=== PATIENT | male | born 1945 | race Caucasian/White ===

== ENCOUNTER 2016-06-29 09:53 | Emergency (ER) | payer MEDICARE, OTHER ==
--- NOTE | 2016-06-29 10:12 | ER Document Report ---
ED Medical Screen (RME) - General Stated Complaint: RIB PAIN Notes: patient is a 71 year old male complaining of right side rib pain that is constant that started sunday with sudden onset. patient has a history of CAd with LA and CABG but also admits to known gall stones. I have greeted and performed a rapid initial assessment of this patient. A comprehensive ED assessment and evaluation of the patient, analysis of test results and completion of the medical decision making process will be conducted by additional ED providers. TRAVEL OUTSIDE OF THE [place] IN LAST 30 DAYS: No - Related Data Allergies/Adverse Reactions: No Known Allergies Allergy (Verified 06/29/16 10:07) Past Medical History - Past Medical History Cardiac Medical History: Reports: Hx Coronary Artery Disease, Hx Heart Attack, Hx Hypercholesterolemia, Hx Hypertension, Hx Peripheral Vascular Disease Pulmonary Medical History: Reports: Hx COPD Denies: Hx Tuberculosis Psychiatric Medical History: Reports: Hx Depression Past Surgical History: Reports: Hx Cardiac Surgery - triple bypass, AAA, stents placed, Hx Coronary Artery Bypass Graft, Hx Open Heart Surgery, Hx Tonsillectomy. Denies: Hx Appendectomy, Hx Bowel Surgery, Hx Cholecystectomy, Hx Gastric Bypass Surgery, Hx Herniorrhaphy, Hx Pacemaker - Immunizations Hx Diphtheria, Pertussis, Tetanus Vaccination: - unknown
--- NOTE | 2016-06-29 10:33 | ER Document Report ---
ED General - General Chief Complaint: Rib Pain Stated Complaint: RIB PAIN Time seen by provider: 10:29 Mode of Arrival: Ambulatory Information source: Patient Notes: 71-year-old male reports he woke up 3 mornings ago with a sudden sharp pain in the right lower rib cage laterally. He reports after few seconds that went away and within an hour he developed more of a vague discomfort in the right lower chest laterally and right upper abdomen. He reports he's had occasional nausea with this but no vomiting. He reports he's never had any prior discomfort like this. He reports the discomfort is always there and not waxing or waning and does not radiate elsewhere. He denies fever, chills, cough, shortness of breath, left-sided chest or abdominal pain, hematemesis, hematochezia, melena, dysuria, hematuria, or syncope. He reports prior history of cardiac bypass surgery and cardiac stents and AAA repair. He reports eating does not make his symptoms better or worse. He reports movement does not make his symptoms better or worse. reports that their son had symptoms similar to this last year that turned out to be gallstones. Patient reports she had an MRI of his back within the past few years that showed "stones" but he does not know if they were kidney stones or gallstones. Physical Exam: General: Alert, appears well. HEENT: Normocephalic. Atraumatic. PERRLA. Extraocular movements intact. Oropharynx clear. Neck: Supple. Non-tender. Respiratory: No respiratory distress. Clear and equal breath sounds bilaterally. Minimal discomfort to palpation at the right costal margin laterally no lesions noted Cardiovascular: Regular rate and rhythm. Abdominal: Normal Inspection. Soft, trace discomfort in the right upper quadrant no guarding rebound rigidity no referred pain no pulsatile masses. No distension. Normal Bowel Sounds. Back: Non-tender. No deformity or step off. No CVA tenderness Extremities: Moves all four extremities. Upper extremities: Normal inspection. Non-tender. Normal color. Normal ROM. Normal temperature. Lower extremities: Normal inspection. Non-tender. No edema. Normal color. Normal ROM. Normal temperature. Neurological: Speech clear mentation normal. Psychological: Normal affect. Normal Mood. Skin: Warm. Dry. Normal color. TRAVEL OUTSIDE OF THE [place] IN LAST 30 DAYS: No - Related Data Allergies/Adverse Reactions: No Known Allergies Allergy (Verified 06/29/16 10:07) Past Medical History - Social History Smoking Status: Current Every Day Smoker Chew tobacco use (# tins/day): Yes Frequency of alcohol use: Occasional Drug Abuse: None Family History: CAD Patient has suicidal ideation: No Patient has homicidal ideation: No - Past Medical History Cardiac Medical History: Reports: Hx Coronary Artery Disease, Hx Heart Attack, Hx Hypercholesterolemia, Hx Hypertension, Hx Peripheral Vascular Disease Pulmonary Medical History: Reports: Hx COPD Denies: Hx Tuberculosis Renal/ Medical History: Denies: Hx Peritoneal Dialysis Psychiatric Medical History: Reports: Hx Depression Past Surgical History: Reports: Hx Cardiac Surgery - triple bypass, AAA, stents placed, Hx Coronary Artery Bypass Graft, Hx Open Heart Surgery, Hx Tonsillectomy. Denies: Hx Appendectomy, Hx Bowel Surgery, Hx Cholecystectomy, Hx Gastric Bypass Surgery, Hx Herniorrhaphy, Hx Pacemaker - Immunizations Hx Diphtheria, Pertussis, Tetanus Vaccination: - unknown Hx Pneumococcal Vaccination: 12/31/11 Review of Systems - Review of Systems Constitutional: denies: Chills, Fever EENT: denies: Ear pain, Nose pain, Throat pain Cardiovascular: See HPI Respiratory: denies: Cough, Short of breath Gastrointestinal: See HPI Genitourinary: denies: Burning, Dysuria, Hematuria Musculoskeletal: See HPI Hematologic/Lymphatic: denies: Swollen glands Neurological/Psychological: denies: Weakness, Numbness Physical Exam - Vital signs Vitals: Resp 16 06/29/16 10:35 Course - Re-evaluation Re-evalutation: 06/29/16 14:25 Patient reports his right upper quadrant and right lower chest pain is somewhat better now. His no evidence in blood work or exam to suggest acute cholecystitis or gallstone pancreatitis. He is comfortable with discharge and outpatient follow-up with general surgery. We'll provide her with prescriptions for pain and nausea as needed - Vital Signs Vital signs: Temp Pulse Resp BP Pulse Ox 69 13 139/74 H 96 06/29/16 11:24 06/29/16 12:30 06/29/16 12:31 06/29/16 12:30 - Laboratory Result Diagrams: 06/29/16 10:40 06/29/16 10:40 Laboratory results interpreted by me: 06/29/16 06/29/16 06/29/16 10:40 10:40 10:40 WBC 11.0 H Absolute Neutrophils 8.4 H D-Dimer 1.18 H Lipase 305.3 H - Diagnostic Test Radiology reviewed: Image reviewed, Reports reviewed - EKG Interpretation by Me Additional EKG results interpreted by me: 06/29/16 14:25 EKG reviewed by myself shows sinus rhythm at 67 occasional premature atrial beat no acute changes no significant change from 10/10/2014 Discharge - Discharge Clinical Impression: Cholelithiasis Qualifiers: Cholelithiasis location: gallbladder Cholecystitis presence: without cholecystitis Biliary obstruction: without biliary obstruction Qualified Code(s) : K80.20 - Calculus of gallbladder without cholecystitis without obstruction Condition: Stable Disposition: HOME, SELF-CARE Instructions: Surgeon Additional Instructions: Gallbladder Disease Your evaluation shows evidence of gallbladder disease. The gallbladder is a pouch under the liver which stores bile. Stones, infection, or irritation of the gallbladder cause attacks of pain. Certain foods -- fats in particular -- may provoke attacks. The usual treatment for gallbladder disease is surgical removal of the gallbladder -- called a cholecystectomy. You will be referred to a physician qualified to advise you on the best treatment for your problem. Hospitalization is not necessary. Take clear liquids only until you are painfree. After that, you should stay on a low-fat diet, with frequent SMALL meals. Call the doctor or return at once if you develop severe pain, repeated vomiting, fever, or jaundice (a yellow color in the skin and whites of the eyes) . Prescriptions: Oxycodone HCl/Acetaminophen [Percocet 5-325 mg Tablet] 1 tab PO Q6H PRN #20 tablet PRN Reason: For Pain Promethazine HCl [Phenergan 25 mg Tablet] 1 tab PO Q6H PRN #20 tablet PRN Reason: Referrals: REGI COEL PA-C [Primary Care Provider] - Follow up as needed DEBORAH RICHMOND MD [ACTIVE STAFF] - Follow up in 1 week
[2016-06-29 10:51] LABS: ABSOLUTE BASOPHILS # (AUTO) 0.1 10^3/uL (0.0-0.2); ABSOLUTE EOSINOPHILS # (AUTO) 0.2 10^3/uL (0.0-0.6); ABSOLUTE LYMPHOCYTES (AUTO) 1.7 10^3/uL (0.5-4.7); ABSOLUTE MONOCYTES (AUTO) 0.7 10^3/uL (0.1-1.4); ABSOLUTE NEUT (AUTO) 8.4 10^3/uL (1.7-8.2); BASOPHILS % (AUTO) 0.6 % (0-2); EOSINOPHILS % (AUTO) 1.7 % (0-6); HEMATOCRIT 49.4 % (37.9-51.0); HEMOGLOBIN 16.9 g/dL (13.5-17.0); HGB HCT DIFFERENCE 1.3; LYMPHOCYTES % (AUTO) 15.7 % (13-45); MEAN CORPUSCULAR HEMOGLOBIN 30.9 pg (27.0-33.4); MEAN CORPUSCULAR HGB CONC 34.3 g/dL (32.0-36.0); MEAN CORPUSCULAR VOLUME 90 fl (80-97); MONOCYTES % (AUTO) 6.1 % (3-13); RED BLOOD COUNT 5.47 10^6/uL (4.35-5.55); RED CELL DISTRIBUTION WIDTH 13.1 % (11.5-14.0); SEGMENTED NEUTROPHILS % (AUTO) 75.9 % (42-78)
[2016-06-29 11:14] LABS: ALANINE AMINOTRANSFERASE 38 U/L (21-72); ALBUMIN 4.7 g/dL (3.5-5.0); ALKALINE PHOSPHATASE 99 U/L (38-126); ANION GAP 14 (5-19); ASPARTATE AMINO TRANSFERASE 27 U/L (17-59); BLOOD UREA NITROGEN 12 mg/dL (7-20); CALCIUM 9.8 mg/dL (8.4-10.2); CARBON DIOXIDE 24 mmol/L (22-30); CHLORIDE 106 mmol/L (98-107); CREATINE KINASE 57 U/L (55-170); CREATININE RESULT 1.05 mg/dL (0.52-1.25); GLUCOSE 107 mg/dL (75-110); LIPASE 305.3 U/L (23-300); SODIUM 143.8 mmol/L (137-145); TOTAL PROTEIN 8.2 g/dL (6.3-8.2)
[2016-06-29 11:22] LABS: CREATINE KINASE MB 0.41 ng/mL (<4.55)
[2016-06-29 11:23] LABS: TROPONIN I < 0.012 ng/mL
--- NOTE | 2016-06-29 13:18 | EKG REPORT ---
SEVERITY:- BORDERLINE ECG - SINUS RHYTHM ATRIAL PREMATURE COMPLEX BORDERLINE INFERIOR Q WAVES : Confirmed by: Brock Martinez MD 29-Jun-2016 13:18:30
[2016-06-29 14:45] VITALS: BP 167/93
== END 2016-06-29 14:43 | disposition home or self-care (01) ==
LOC: ER 09:53
DX: K80.20 Calculus of gallbladder without cholecystitis without obstruction (principal); R07.81 Pleurodynia; F17.210 Nicotine dependence, cigarettes, uncomplicated; I25.10 Atherosclerotic heart disease of native coronary artery without angina pectoris; E78.00 Pure hypercholesterolemia, unspecified; I10 Essential (primary) hypertension; J44.9 Chronic obstructive pulmonary disease, unspecified; I25.2 Old myocardial infarction; Z95.1 Presence of aortocoronary bypass graft
CPT/HCPCS: 36415; 71010; 71275; 76700; 80053; 82550; 82553; 83690; 84484; 85025; 85379; 93005; 93010; 99284

== ENCOUNTER 2016-08-10 08:49 | Emergency (ER) | payer MEDICARE, OTHER ==
--- NOTE | 2016-08-10 10:39 | ER Document Report ---
ED Cardiac - General Mode of Arrival: Ambulatory Information source: Patient TRAVEL OUTSIDE OF THE [place] IN LAST 30 DAYS: No - HPI Patient complains to provider of: Chest pain Was the onset of pain: Sudden When did pain begin: 0600 today Quality of pain: Pressure Chest pain radiation location: Right jaw, Right arm Severity now: Mild Severity at worst: Moderate Chest pain precipitating factors: At Rest - asleep Cardiac risk factors: Hypertension, Smoker, Hx HI Associated symptoms: Jaw pain, Nausea/vomiting - No vomiting, Other - Right arm pain. denies: Diaphoresis <DAWN MARTINEZ - Last Filed: 08/10/16 11:12> <ELICEO NI - Last Filed: 08/10/16 16:20> <CARLY CONTRERAS - Last Filed: 08/10/16 19:40> - General Chief Complaint: Chest Pain Stated Complaint: CHEST PAIN Notes: Patient is a 71-year-old male presenting to the emergency department concerned of chest pain that awoke him from sleep at approximately 0600 this morning. Patient describes the pain as a pressure which is now improved to a mild pressure. Patient also reports a dull ache down his left arm and some jaw pain. Patient reports some fleeting chest pain approximately one week ago that lasted approximately 10 minutes. Patient also admits to some mild nausea, but denies any diaphoresis. Patient has an extensive history of cardiac problems including a triple bypass, stents, and endarterectomy. 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 (DAWN MARTINEZ) - Related Data Allergies/Adverse Reactions: No Known Allergies Allergy (Verified 08/10/16 08:53) Past Medical History - General Information source: Patient, [facility] Records - Social History Smoking Status: Current Every Day Smoker Chew tobacco use (# tins/day): No Frequency of alcohol use: None Drug Abuse: Marijuana Lives with: Family Family History: CAD Patient has suicidal ideation: No Patient has homicidal ideation: No - Past Medical History Cardiac Medical History: Reports: Hx Coronary Artery Disease, Hx Heart Attack, Hx Hypercholesterolemia, Hx Hypertension, Hx Peripheral Vascular Disease Pulmonary Medical History: Reports: Hx COPD Denies: Hx Tuberculosis Renal/ Medical History: Denies: Hx Peritoneal Dialysis Psychiatric Medical History: Reports: Hx Depression Past Surgical History: Reports: Hx Cardiac Catheterization, Hx Cardiac Surgery - triple bypass, AAA, stents placed, Hx Coronary Artery Bypass Graft, Hx Coronary Stent - 2000, Hx Open Heart Surgery, Hx Tonsillectomy, Hx Vascular Surgery - AAA stent in 2010. Denies: Hx Appendectomy, Hx Bowel Surgery, Hx Cholecystectomy, Hx Gastric Bypass Surgery, Hx Herniorrhaphy, Hx Pacemaker - Immunizations Hx Diphtheria, Pertussis, Tetanus Vaccination: - unknown Hx Pneumococcal Vaccination: 12/31/11 <DAWN MARTINEZ - Last Filed: 08/10/16 11:12> Review of Systems - Review of Systems Constitutional: No symptoms reported. denies: Diaphoresis EENT: No symptoms reported Cardiovascular: See HPI, Chest pain - Radiates down left arm Respiratory: No symptoms reported Gastrointestinal: See HPI, Nausea. denies: Vomiting Genitourinary: No symptoms reported Male Genitourinary: No symptoms reported Musculoskeletal: No symptoms reported Skin: No symptoms reported Hematologic/Lymphatic: No symptoms reported Neurological/Psychological: No symptoms reported -: Yes All other systems reviewed and negative <DAWN MARTINEZ - Last Filed: 08/10/16 11:12> Physical Exam - General General appearance: Alert In distress: None - HEENT Head: Normocephalic, Atraumatic Eyes: Normal Pupils: PERRL Neck: No: Carotid bruit - Respiratory Respiratory status: No respiratory distress Chest status: Nontender Breath sounds: Normal Chest palpation: Normal - Cardiovascular Rhythm: Regular Heart sounds: Normal auscultation Murmur: No - Abdominal Inspection: Normal Tenderness: Nontender - Back Back: Normal, Nontender - Extremities General upper extremity: Normal inspection, Nontender General lower extremity: Normal inspection, Nontender - Neurological Neuro grossly intact: Yes Cognition: Normal Radha Coma Scale Eye Opening: Spontaneous [place] Coma Scale Verbal: Oriented Radha Coma Scale Motor: Obeys Commands Radha Coma Scale Total: 15 Speech: Normal - Psychological Associated symptoms: Normal affect, Normal mood - Skin Skin Temperature: Warm Skin Moisture: Dry Skin Color: Normal <DAWN MARTINEZ - Last Filed: 08/10/16 11:12> <ELICEO NI - Last Filed: 08/10/16 16:20> <CARLY CONTRERAS - Last Filed: 08/10/16 19:40> - Vital signs Vitals: Temp Pulse Resp BP Pulse Ox 97.8 F 64 16 154/87 H 98 08/10/16 09:02 08/10/16 09:02 08/10/16 09:02 08/10/16 09:02 08/10/16 09:02 Course - Laboratory Result Diagrams: 08/10/16 10:35 08/10/16 10:35 <MARÍA MARTINEZSSICA - Last Filed: 08/10/16 11:12> - Laboratory Result Diagrams: 08/10/16 10:35 08/10/16 10:35 - Diagnostic Test Radiology reviewed: Image reviewed, Reports reviewed - Normal chest x-ray - EKG Interpretation by Pr EKG shows normal: Sinus rhythm, [place], Intervals. abnormal: QRS Complexes - Probable old inferior HI, ST-T Waves - Nonspecific anterior T abnormalities Rate: Normal - 60 Rhythm: NSR When compared to previous EKG there are: Changes noted - The anterior T-wave depression and inversion is new compared to 10/10/2014 and 06/29/2016. - Consults Dr. Vega Time consulted: 16:05 Consulted provider: other - Will accept at [facility] on [facility] cardiology service - Transfer of Care Care transferred to following provider: Dr. Contreras <ELICEO NI - Last Filed: 08/10/16 16:20> - Laboratory Result Diagrams: 08/10/16 10:35 08/10/16 10:35 <CARLY CONTRERAS - Last Filed: 08/10/16 19:40> - Re-evaluation Re-evalutation: 08/10/16 11:47 EKG does suggest some ischemic changes in the anterior leads compared to previous EKGs. He was given one sublingual nitroglycerin at 11:23 AM. At this time he cannot note any significant change in his very mild pressure discomfort. His blood pressure did drop to 114 systolic and he is receiving IV fluids. 08/10/16 16:20 The patient much later did admit that his chest pain last week lasted considerably longer than 10 minutes, possibly up to an hour after he took aspirin for it. He also reports that his doctor had him stop Plavix about 4 years ago. He is receiving heparin, Plavix, and nitroglycerin paste while awaiting transport. (ELICEO NI) 08/10/16 19:40 Patient was evaluated prior to transport. EMS is present. Patient denies any chest discomfort currently. Heart and lungs show no acute abnormality. ( CARLY CONTRERAS) - Vital Signs Vital signs: Temp Pulse Resp BP Pulse Ox 97.8 F 64 12 126/82 H 98 08/10/16 09:02 08/10/16 09:02 08/10/16 17:03 08/10/16 17:03 08/10/16 17:03 - Laboratory Laboratory results interpreted by me: 08/10/16 08/10/16 10:35 14:35 Sodium 145.2 H Potassium 5.2 H Calcium 10.4 H Creatine Kinase 238 H - Transfer of Care Notes: 08/10/16 16:21 Patient is pending transport to [facility]. (ELICEO NI) Critical Care Note - Critical Care Note Total time excluding time spent on procedures (mins): 45 <ELICEO NI - Last Filed: 08/10/16 16:20> Discharge <DAWN MARTINEZ - Last Filed: 08/10/16 11:12> <ELICEO NI - Last Filed: 08/10/16 16:20> <CARLY CONTRERAS - Last Filed: 08/10/16 19:40> - Discharge Clinical Impression: NSTEMI (non-ST elevation myocardial infarction) Chest pain Qualifiers: Chest pain type: chest pain due to myocardial ischemia Ischemic chest pain type : unstable angina pectoris Qualified Code(s): I20.0 - Unstable angina Condition: Stable Disposition: [facility] Referrals: REGI REED PA-C [Primary Care Provider] - Follow up as needed Scribe Documentation - Scribe Written by Scribe:: Dawn Martinez 08/10/2016 1039 acting as scribe for :: Oliver <DAWN MARTINEZ - Last Filed: 08/10/16 11:12>
[2016-08-10 10:49] LABS: ABSOLUTE BASOPHILS # (AUTO) 0.1 10^3/uL (0.0-0.2); ABSOLUTE EOSINOPHILS # (AUTO) 0.1 10^3/uL (0.0-0.6); ABSOLUTE LYMPHOCYTES (AUTO) 2.2 10^3/uL (0.5-4.7); ABSOLUTE MONOCYTES (AUTO) 0.6 10^3/uL (0.1-1.4); ABSOLUTE NEUT (AUTO) 5.7 10^3/uL (1.7-8.2); BASOPHILS % (AUTO) 0.8 % (0-2); EOSINOPHILS % (AUTO) 1.6 % (0-6); HEMATOCRIT 49.2 % (37.9-51.0); HGB HCT DIFFERENCE 1.8; LYMPHOCYTES % (AUTO) 25.2 % (13-45); MEAN CORPUSCULAR HEMOGLOBIN 31.3 pg (27.0-33.4); MEAN CORPUSCULAR HGB CONC 34.6 g/dL (32.0-36.0); MEAN CORPUSCULAR VOLUME 91 fl (80-97); MONOCYTES % (AUTO) 7.2 % (3-13); RED BLOOD COUNT 5.43 10^6/uL (4.35-5.55); RED CELL DISTRIBUTION WIDTH 12.9 % (11.5-14.0); SEGMENTED NEUTROPHILS % (AUTO) 65.2 % (42-78); WHITE BLOOD COUNT 8.7 10^3/uL (4.0-10.5)
[2016-08-10 11:10] LABS: ALANINE AMINOTRANSFERASE 40 U/L (21-72); ALBUMIN 4.4 g/dL (3.5-5.0); ALKALINE PHOSPHATASE 85 U/L (38-126); ANION GAP 12 (5-19); ASPARTATE AMINO TRANSFERASE 29 U/L (17-59); BILIRUBIN,DIRECT 0.2 mg/dL (0.0-0.4); BILIRUBIN,TOTAL 0.7 mg/dL (0.2-1.3); BLOOD UREA NITROGEN 15 mg/dL (7-20); CALCIUM 10.4 mg/dL (8.4-10.2); CARBON DIOXIDE 28 mmol/L (22-30); CHLORIDE 105 mmol/L (98-107); CREATINE KINASE 95 U/L (55-170); CREATININE RESULT 1.07 mg/dL (0.52-1.25); GLUCOSE 105 mg/dL (75-110); LIPASE 202.8 U/L (23-300); POTASSIUM 5.2 mmol/L (3.6-5.0); SODIUM 145.2 mmol/L (137-145); TOTAL PROTEIN 7.7 g/dL (6.3-8.2)
[2016-08-10 11:23] LABS: CREATINE KINASE MB 1.24 ng/mL (<4.55)
[2016-08-10] MEDS ORDERED: NORMAL SALINE 1000 ML 1,000 ML IV ONE ×3 (11:24→14:26)
[2016-08-10 11:26] LABS: TROPONIN I 0.071 ng/mL
[2016-08-10] MEDS ORDERED: HEPARIN SOD (PORCINE) 1,000 UNIT/ML 10 ML VIAL IV ONE (12:14)
[2016-08-10] MEDS ORDERED: HEPARIN SODIUM,PORCINE/D5W 250 ML IV PRN (12:14)
[2016-08-10] MEDS ORDERED: HEPARIN SOD (PORCINE) 1,000 UNIT/ML 10 ML VIAL IV PRN (12:14)
[2016-08-10 12:45] LABS: PROTHROMBIN TIME 11.9 SEC (11.4-15.4)
[2016-08-10 12:46] LABS: PARTIAL THROMBOPLASTIN TIME 29.8 SEC (23.5-35.8)
--- NOTE | 2016-08-10 13:12 | EKG REPORT ---
SEVERITY:- ABNORMAL ECG - SINUS RHYTHM NONSPECIFIC T ABNORMALITIES, ANT-LAT LEADS : Confirmed by: Brock Martinez MD 10-Aug-2016 13:11:44
[2016-08-10 13:35] LABS: APPEARANCE,URINE CLEAR; BILIRUBIN,URINE NEGATIVE (NEGATIVE); GLUCOSE, URINE NEGATIVE (NEGATIVE); KETONES,URINE NEGATIVE (NEGATIVE); LEUKOCYTE ESTERASE,URINE NEGATIVE (NEGATIVE); NITRITE,URINE NEGATIVE (NEGATIVE); PROTEIN,URINE NEGATIVE (NEGATIVE); URINE SPECIFIC GRAVITY 1.008; UROBILINOGEN,URINE NEGATIVE mg/dL (<2.0)
[2016-08-10] MEDS ORDERED: NITROGLYCERIN 2% OINTMENT 1 GM PACKET TP ONE (15:24)
[2016-08-10] MEDS ORDERED: NITROGLYCERIN 2% OINTMENT 1 GM PACKET ONE (15:25)
[2016-08-10] MEDS ORDERED: CLOPIDOGREL BISULFATE 300 MG TABLET PO ONE (15:43)
[2016-08-10 17:31] VITALS: BP 126/82
== END 2016-08-10 18:03 | disposition short-term general hospital (02) ==
LOC: ER 08:49
DX: I21.4 Non-ST elevation (NSTEMI) myocardial infarction (principal); R07.89 Other chest pain; R68.84 Jaw pain; M79.601 Pain in right arm; R11.0 Nausea; I25.10 Atherosclerotic heart disease of native coronary artery without angina pectoris; I25.2 Old myocardial infarction; I10 Essential (primary) hypertension; J44.9 Chronic obstructive pulmonary disease, unspecified; F17.200 Nicotine dependence, unspecified, uncomplicated; Z95.1 Presence of aortocoronary bypass graft; Z98.61 Coronary angioplasty status; Z82.49 Family history of ischemic heart disease and other diseases of the circulatory system
CPT/HCPCS: 93005; 36415; 82553; 82550; 83690; 85025; 85610; 85730; 80053; 81001; 84484; 71010; 93010; A9270 ×2; J1644 ×2; J7030; J3490